=== PATIENT | female | born 1965 | race Caucasian/White ===

== ENCOUNTER → 2017-08-21 | Outpatient (CLI) | payer OTHER | END | disposition home or self-care (01) | LOC: KCIC CT 10:15 | DX: J32.9 Chronic sinusitis, unspecified (principal); J34.2 Deviated nasal septum | CPT/HCPCS: 70486 ==

== ENCOUNTER → 2019-02-25 | Outpatient (CLI) | payer BC, OTHER ==
--- NOTE | 2019-02-25 15:49 | KCIC ---
Thyroid ultrasound HISTORY: Hypothyroidism. FINDINGS: Right thyroid measures 3.5 x 1.3 x 1.2 cm. Left thyroid measures 4.6 x 1.3 x 1.6 cm. Thyroid isthmus measures 1 mm. The thyroid is diffusely heterogeneous in appearance with a slightly irregular contour. No dominant mass is seen. Vascularity is within normal limits. IMPRESSION: Small heterogeneous thyroid gland. Electronically signed by: Peter Sahu MD (02/25/2019 3:46 PM) [id number]
== END | disposition home or self-care (01) ==
LOC: KCIC US 08:52
PROVIDERS: ATTEND Family Medicine
DX: E07.89 Other specified disorders of thyroid (principal); E03.9 Hypothyroidism, unspecified
CPT/HCPCS: 76536

== ENCOUNTER → 2020-05-12 | Outpatient (CLI) | payer BC ==
--- NOTE | 2020-05-12 15:43 | KCIC ---
EXAM: HAND LEFT 3V, FINGER(S) LEFT, WRIST 3V LEFT 05/12/2020 12:00 AM CLINICAL INDICATION:Left hand, wrist and thumb pain for several months. First through third digits, swelling. COMPARISON:None TECHNIQUE:3 views of the left hand, 3 views of the left wrist, 3 views of left thumb FINDINGS: Left hand: No acute fracture. Alignment is normal. There is mild joint space narrowing and subchondral sclerosis at the first CMC joint. The remaining joint spaces are maintained. Bone mineralization is normal. No erosions. Soft tissues normal. Left wrist: No acute fracture. Alignment is normal. Mild joint space with subchondral sclerosis and small osteophytes at the first CMC joint. Remaining joint spaces are maintained. No erosions. Bone mineralization is normal. Soft tissues normal. Left thumb: No acute fracture. Alignment is normal. Mild soft tissue swelling and small osteophytes of the first CMC joint. No erosions. Soft tissues normal. 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 Otherwise normal left hand, wrist, and thumb. Electronically signed by: Marybel Fischer MD (05/12/2020 3:40 PM) [id number]
== END ==
LOC: KCIC 09:31
PROVIDERS: ATTEND Family Medicine
DX: M19.042 Primary osteoarthritis, left hand (principal); M25.742 Osteophyte, left hand
CPT/HCPCS: 73110; 73130; 73140